=== PATIENT | female | born 1990 | race Caucasian/White ===

== ENCOUNTER 2017-11-28 10:14 | Emergency (ER) | payer BC ==
[2017-11-28 10:32] VITALS: RESP 18; TEMP 98.3
[2017-11-28 11:13] LABS: HCG,QUALITATIVE URINE NEGATIVE (NEGATIVE); SQUAMOUS EPITHIAL 4 /hpf (0-5); URINE BILIRUBIN NEGATIVE (NEGATIVE); URINE BLOOD NEGATIVE (NEGATIVE); URINE CLARITY Clear (Clear); URINE COLOR Straw (YELLOW); URINE GLUCOSE (UA) NORMAL (Normal); URINE LEUKOCYTE ESTERASE NEG Leu/uL (Negative); URINE NITRATE NEGATIVE (NEGATIVE); URINE PROTEIN NEGATIVE (NEGATIVE); URINE UROBILINOGEN NORMAL mg/dL (0.2-1.0)
[2017-11-28] MEDS ORDERED: Lidocaine 5% Patch TD STA (11:36)
[2017-11-28] MEDS ORDERED: Dexamethasone 4 mg/1 ml IM STA (11:36)
[2017-11-28] MEDS ORDERED: Dexamethasone 4 mg/1 ml ONE (11:42)
[2017-11-28] MEDS ORDERED: Lidocaine 5% Patch TD ONE (11:42)
--- NOTE | 2017-11-28 12:00 | RAD ---
PROCEDURE: Radiographs of the Lumbar Spine. HISTORY: sciatica COMPARISON: None available. FINDINGS: BONES: Alignment appears satisfactory. No listhesis. No acute displaced fracture identified. DISC SPACES: Unremarkable. OTHER FINDINGS: None. IMPRESSION: No acute displaced fracture or subluxation identified.
--- NOTE | 2017-11-28 12:26 | C.PDOC ---
History Of Present Illness 27 y/o female presents to the ER complaining of low back pain which has been becoming progressively worse over the past 1 week. Patient reports that the pain radiates to her right buttock and thigh. Patient reports that the pain becomes worse with movement and changing positions. Patient denies any injury, urinary symptoms, fever, and prior symptoms. Time Seen by Provider: 11/28/17 11:28 Chief Complaint (Nursing): Back Pain History Per: Patient History/Exam Limitations: no limitations Onset/Duration Of Symptoms: Days Current Symptoms Are (Timing): Still Present Severity: Moderate Previous Symptoms: None Past Medical History Reviewed: Historical Data, Nursing Documentation, Vital Signs Vital Signs: Last Vital Signs Temp 98.3 F 11/28/17 12:32 Pulse 64 11/28/17 12:32 Resp 18 11/28/17 12:32 BP 124/80 11/28/17 12:32 Pulse Ox 99 11/28/17 13:42 - Medical History PMH: Asthma Surgical History: No Surg Hx Family History: States: No Known Family Hx - Social History Hx Tobacco Use: No Hx Alcohol Use: Yes Hx Substance Use: No - Immunization History Hx Tetanus Toxoid Vaccination: No Hx Influenza Vaccination: Yes Hx Pneumococcal Vaccination: No Review Of Systems Except As Marked, All Systems Reviewed And Found Negative. Constitutional: Negative for: Fever, Chills Genitourinary: Negative for: Dysuria, Hematuria Musculoskeletal: Positive for: Back Pain (low back pain) Physical Exam - Physical Exam Appears: Non-toxic, No Acute Distress Skin: Normal Color, Warm Head: Atraumatic, Normacephalic Eye(s): bilateral: Normal Inspection Ear(s): Left: Normal Nose: Normal Oral Mucosa: Moist Neck: Supple Chest: Symmetrical Cardiovascular: Rhythm Regular Respiratory: Normal Breath Sounds, No Accessory Muscle Use, No Rales, No Rhonchi , No Wheezing Back: Vertebral Tenderness (midline tenderness in lower back), Straight Leg Raising (straight right leg raise at 45 degrees) Extremity: Normal ROM, Tenderness (tenderness in the posterior right buttock and posterior right thigh) Neurological/Psych: Other (no focal deficits) ED Course And Treatment O2 Sat by Pulse Oximetry: 99 (RA) Pulse Ox Interpretation: Normal - Other Rad No standard instances X-Ray: Viewed By Me, Read By Radiologist Interpretation: PROCEDURE: Radiographs of the Lumbar Spine. HISTORY: sciatica. COMPARISON: None available. FINDINGS: BONES: Alignment appears satisfactory. No listhesis. No acute displaced fracture identified. DISC SPACES : Unremarkable. OTHER FINDINGS: None. IMPRESSION: No acute displaced fracture or subluxation identified. Progress Note: Lumbar Spine-X-Ray ordered.Patient given Valium PO, Toradol IM, Decadron IM, and Lidoderm Patch. On re-evaluation, patient feels better and is ambulatory. Patient is not displaying any neurological deficits. Disposition - Disposition Disposition: HOME/ ROUTINE Disposition Time: 12:25 Condition: STABLE Additional Instructions: Follow up with PMD within 1-2 days. Return to Ed if feel worse. 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 - Scribe Statement The provider has reviewed the documentation as recorded by the Zaira Choudhary Provider Attestation All medical record entries made by the Jose Alejandroibe were at my direction and personally dictated by me. I have reviewed the chart and agree that the record accurately reflects my personal performance of the history, physical exam, medical decision making, and the department course for this patient. I have also personally directed, reviewed, and agree with the discharge instructions and disposition.
[2017-11-28 12:32] VITALS: BP 124/80; PULSE 64
[2017-11-28 13:12] VITALS: O2SAT 99
== END 2017-11-28 12:38 | disposition home or self-care (01) ==
LOC: C.ER 10:14
DX: M54.16 Radiculopathy, lumbar region (principal)
CPT/HCPCS: 72100; 81001; 84703; 96372; 99283; J1100; J1885

== ENCOUNTER 2018-12-05 08:04 | Emergency (ER) | payer BC, OTHER ==
--- NOTE | 2018-12-05 08:12 | C.PDOC ---
History Of Present Illness 28 y/o female,w/PMhx of sciatica and asthma presents to the ER complaining of back pain which began yesterday. Patient states that the pain is located mainly in the right lower back and radiates down the right buttock and leg. Pain is typical of her sciatica and is worse with sitting for long periods of time, she notes that she has to sit for long periods of time at her job. She states that she took Aleve and she applied an old Lidoderm patch yesterday to the area without relief. Denies having trauma, falls, weakness, numbness, parasthesias, saddle anaesthesia, bowel/ bladder incontinence, fever, chills, abdominal pain, urinary symptoms, chest pain, SOB, vaginal bleeding/discharge, or any other associated symptoms. Time Seen by Provider: 12/05/18 08:06 Chief Complaint (Nursing): Back Pain History Per: Patient History/Exam Limitations: no limitations Onset/Duration Of Symptoms: Days Current Symptoms Are (Timing): Still Present Severity: Moderate Past Medical History Reviewed: Historical Data, Nursing Documentation, Vital Signs Vital Signs: Last Vital Signs Temp 98.4 F 12/05/18 08:08 Pulse 86 12/05/18 08:08 Resp 18 12/05/18 08:08 BP 132/93 H 12/05/18 08:08 Pulse Ox 99 12/05/18 08:08 - Medical History PMH: Asthma Surgical History: No Surg Hx Family History: States: No Known Family Hx - Social History Hx Tobacco Use: No Hx Alcohol Use: Yes Hx Substance Use: No - Immunization History Hx Tetanus Toxoid Vaccination: No Hx Influenza Vaccination: No Hx Pneumococcal Vaccination: No Review Of Systems Except As Marked, All Systems Reviewed And Found Negative. Constitutional: Negative for: Fever, Chills Eyes: Negative for: Vision Change ENT: Negative for: Nose Congestion, Throat Pain Cardiovascular: Negative for: Chest Pain, Palpitations, Light Headedness Respiratory: Negative for: Cough, Shortness of Breath Gastrointestinal: Negative for: Nausea, Vomiting, Abdominal Pain, Diarrhea, Constipation Genitourinary: Negative for: Dysuria, Incontinence, Hematuria Musculoskeletal: Positive for: Back Pain Skin: Negative for: Rash, Lesions Neurological: Negative for: Weakness, Numbness Physical Exam - Physical Exam Appears: Non-toxic, No Acute Distress Skin: Normal Color, Warm, Dry Head: Atraumatic, Normacephalic Eye(s): bilateral: Normal Inspection Nose: Normal Oral Mucosa: Moist Neck: Supple Chest: Symmetrical Cardiovascular: Rhythm Regular Respiratory: Normal Breath Sounds, No Rales, No Rhonchi, No Wheezing Gastrointestinal/Abdominal: Normal Exam, Soft, No Tenderness, No Guarding, No Rebound Back: No Vertebral Tenderness, Straight Leg Raising (positive right straight leg raise) Extremity: Normal ROM, Tenderness (mild tenderness over right buttock) Neurological/Psych: Oriented x3, Normal Speech ED Course And Treatment O2 Sat by Pulse Oximetry: 99 (RA) Pulse Ox Interpretation: Normal Medical Decision Making Medical Decision Making: Plan: --Toradol IM --Valium PO --UA --POC preg POC negative Labwork reviewed, unremarkable Patient reports decreased pain after medications. Will discharge with pain medication and recommend orthopedic and PMD followup. Diagnostic testing results and plan of care discussed with patient. Strict instructions given regarding prescription use, importance of followup, and signs/symptoms to return to ER including saddle anesthesia, bowel/bladder incontinence, numbness, weakness, paresthesia, or any other new/worsening symptoms. Pt verbalized understanding of discussion. Patient is A&Ox3, ambulating with steady gait, with vital signs stable for discharge. Disposition - Disposition Referrals: [facility] at [facility] [Outside] Sean Velarde III, MD [Staff Provider] - Disposition: HOME/ ROUTINE Disposition Time: 09:20 Condition: IMPROVED Additional Instructions: Ibuprofen every 8 hours with food for pain Flexeril every 12 hours as needed for pain, do not take before driving or operating machinery Lidoderm patches daily as needed, 12 hours on, 12 hours off Stretching exercises Followup with orthopedics within 2 days Followup with primary doctor within 2 days Return to ER with any new/worsening symptoms Prescriptions: Cyclobenzaprine [Cyclobenzaprine HCl] 10 mg PO Q12H PRN #14 tab PRN Reason: Muscle Spasm Ibuprofen [Motrin Tab] 600 mg PO Q8H PRN #30 tab PRN Reason: Pain, Moderate (4-7) Lidocaine 5% [Lidoderm] 1 ea TD DAILY PRN #30 patch PRN Reason: Pain, Mild (1-3) Instructions: Low Back Pain in Adults, Sciatica Exercises Forms: General Discharge Instructions, [facility] (Estonian), School Excuse - Clinical Impression Clinical Impression: Back pain with sciatica - 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 - Scribe Statement The provider has reviewed the documentation as recorded by the Jose Alejandroibe Mono Choudhary Provider Attestation All medical record entries made by the Jose Alejandroibpao were at my direction and personally dictated by me. I have reviewed the chart and agree that the record accurately reflects my personal performance of the history, physical exam, medical decision making, and the department course for this patient. I have also personally directed, reviewed, and agree with the discharge instructions and disposition.
[2018-12-05 08:32] VITALS: BMI 33.0
[2018-12-05 08:51] LABS: SQUAMOUS EPITHIAL 5 /hpf (0-5); URINE BILIRUBIN NEGATIVE (NEGATIVE); URINE BLOOD NEGATIVE (NEGATIVE); URINE CLARITY Hazy (Clear); URINE COLOR Yellow (YELLOW); URINE GLUCOSE (UA) NORMAL (Normal); URINE LEUKOCYTE ESTERASE NEG Leu/uL (Negative); URINE PROTEIN NEGATIVE (NEGATIVE); URINE UROBILINOGEN NORMAL mg/dL (0.2-1.0)
[2018-12-05 09:22] VITALS: BP 125/83; PULSE 88; RESP 20; TEMP 97.9
[2018-12-05 10:09] VITALS: O2SAT 99
== END 2018-12-05 09:22 | disposition home or self-care (01) ==
LOC: C.ER 08:04
DX: M54.41 Lumbago with sciatica, right side (principal)
CPT/HCPCS: 81001; 81025; 96372; 99284; J1885